=== PATIENT | female | born 1995 | race Two or more races ===

== ENCOUNTER 2019-07-28 21:30 | Observation (INO) | payer MEDICAID ==
[~2019-07-28] VITALS: Ht 162.6 cm; Wt 102.1 kg
[2019-07-28] MEDS ORDERED: PREN-153 OR (22:08)
== END 2019-07-28 22:27 | disposition home or self-care (01) | DRG 566 ==
LOC: LDRP 21:30
PROVIDERS: ADMIT Specialist; ATTEND Specialist
DX: O62.9 Abnormality of forces of labor, unspecified (principal); O26.893 Other specified pregnancy related conditions, third trimester; M79.601 Pain in right arm; N89.8 Other specified noninflammatory disorders of vagina; M79.602 Pain in left arm; Z3A.38 38 weeks gestation of pregnancy
CPT/HCPCS: 59025; 81002; G0378

== ENCOUNTER 2019-08-09 09:10 | Observation (INO) | payer MEDICAID ==
[~2019-08-09 09:10] MED LIST: PREN-153 OR
== END 2019-08-09 11:15 | disposition home or self-care (01) | DRG 566 ==
LOC: LDRP 09:10
PROVIDERS: ADMIT Specialist; ATTEND Specialist
DX: O48.0 Post-term pregnancy (principal); O26.893 Other specified pregnancy related conditions, third trimester; N89.8 Other specified noninflammatory disorders of vagina; Z3A.40 40 weeks gestation of pregnancy
CPT/HCPCS: 59025; 76818; 81002; G0378

== ENCOUNTER 2019-08-09 21:36 | Inpatient (IN) | payer MEDICAID | END 2019-08-11 14:15 | disposition home or self-care (01) | LOC: LDRP 21:36 | PROC: 10E0XZZ Delivery of Products of Conception, External Approach (ICD-10-PCS; principal; ~2019-08-09) | PROC: 0KQM0ZZ Repair Perineum Muscle, Open Approach (ICD-10-PCS; ~2019-08-09) | DX: O70.1 Second degree perineal laceration during delivery (principal); Z37.0 Single live birth; Z3A.40 40 weeks gestation of pregnancy ==

== ENCOUNTER 2020-02-01 16:41 | Emergency (ER) | payer MEDICAID ==
[~2020-02-01] VITALS: Ht 167.6 cm; Wt 99.8 kg
[2020-02-01] MEDS ORDERED: SODIUM CHLORIDE 0.9% 1,000 ML IV ONE (17:12)
[2020-02-01] MEDS ORDERED: ONDANSETRON HCL 4 MG/2 ML VIAL IV ONE (17:15)
[2020-02-01] MEDS ORDERED: PANTOPRAZOLE 40 MG/10 ML VIAL INJ IV ONE (17:15)
[2020-02-01 18:56] LABS: Basophils # (auto) 0 10 ^3/uL (0-0.2); Monocytes # (auto) 0.4 10 ^3/uL (0-1.3); Platelet Count (auto) 233 10^3/uL (140-450)
[2020-02-01 18:57] LABS: Basophils % (auto) 0.2 % (0.0-2.0); Eosinophils # (auto) 0.1 10 ^3/uL (0-0.8); Eosinophils % (auto) 0.7 % (0.0-7.0); Hematocrit 41.8 % (36.0-46.0); Lymphocytes # (auto) 0.4 10 ^3/uL (0.4-5.4); Lymphocytes % (auto) 4.3 % (10.0-50.0); Mean Corpuscular Hemoglobin 26.3 pg (28.0-32.0); Mean Corpuscular Hgb Conc. 33.6 g/dL (32.0-36.0); Mean Corpuscular Volume 78.3 fL (80.0-100.0); Monocytes % (auto) 4.2 % (0.0-12.0); Neutrophils # (auto) 9.1 10 ^3/uL (1.6-8.6); Neutrophils % (auto) 90.6 % (37.0-80.0); Red Blood Cells 5.34 10^6/uL (4.0-5.20); Red Cell Distribution Width 14.8 % (11.8-14.3); White Blood Cell 10.1 10^3/uL (4.4-10.8)
[2020-02-01 19:07] LABS: Albumin 3.6 g/dL (3.4-5.0); Calcium 9.1 mg/dL (8.5-10.1); Potassium 3.4 mmol/L (3.5-5.1)
[2020-02-01 19:11] LABS: BUN/Creatinine Ratio 19.2; Bilirubin, Total 0.3 mg/dL (0.2-1.0); Total Protein 7.8 g/dL (6.4-8.2)
[2020-02-01 19:18] VITALS: BP 101/61
[2020-02-01 22:14] LABS: Urine Bacteria FEW /hpf (None Seen); Urine Blood Negative /uL (Negative); Urine Mucus FEW (None Seen); Urine Specific Gravity 1.031 (1.001-1.035); Urine WBC 2 /hpf (0 - 5)
== END 2020-02-01 21:00 | disposition home or self-care (01) ==
LOC: ER 16:41
DX: O21.0 Mild hyperemesis gravidarum (principal); Z3A.11 11 weeks gestation of pregnancy
CPT/HCPCS: 36415; 76705; 76801; 80053; 81001; 82010; 84702; 85025; 96361; 96374; 96375; 99285; C9113; J2405; J7030; 81002

== ENCOUNTER 2021-04-05 06:13 | Emergency (ER) | payer MEDICAID ==
[~2021-04-05] VITALS: Ht 180.3 cm; Wt 104.3 kg
[~2021-04-05 06:13] MED LIST changes: -PREN-153 OR; +PREN1TAB71 OR
[2021-04-05] MEDS ORDERED: ACETAMINOPHEN 500 MG TAB PO ONE (07:45)
[2021-04-05] MEDS ORDERED: cefTRIAXone SOD 1,000 MG VL IM ONE (08:00)
[2021-04-05 08:27] LABS: Urine Bacteria FEW /hpf (None Seen); Urine Blood Negative /uL (Negative); Urine Mucus FEW (None Seen); Urine Specific Gravity 1.029 (1.001-1.035); Urine WBC 3 /hpf (0 - 5)
[2021-04-05 09:10] VITALS: BP 115/76
== END 2021-04-05 09:13 | disposition home or self-care (01) ==
LOC: ER 06:13
DX: M54.5 Low back pain (principal); N30.00 Acute cystitis without hematuria; Z79.899 Other long term (current) drug therapy
CPT/HCPCS: 81001; 81025; 96372; 99283; J0696

== ENCOUNTER 2021-08-06 09:55 | Observation (INO) | payer MEDICAID ==
[~2021-08-06] VITALS: Ht 162.6 cm; Wt 111.1 kg
[2021-08-08] MEDS ORDERED: GLYB2.5T8 PO (10:14)
== END 2021-08-08 10:40 | disposition home or self-care (01) ==
LOC: LDRP 09:55 → UNDOADMOB 09:55 → LDRP 08-08 08:59
PROVIDERS: ADMIT Obstetrics & Gynecology; ATTEND Obstetrics & Gynecology
DX: O24.419 Gestational diabetes mellitus in pregnancy, unspecified control (principal); Z3A.30 30 weeks gestation of pregnancy
CPT/HCPCS: 59025; 76818; 81002; 82948; 82962; G0378; G0379

== ENCOUNTER 2021-08-11 08:46 | Observation (INO) | payer MEDICAID ==
[~2021-08-11 08:46] MED LIST changes: +GLYB2.5T8 PO
== END 2021-08-11 10:50 | disposition home or self-care (01) ==
LOC: LDRP 09:04
PROVIDERS: ADMIT Obstetrics & Gynecology; ATTEND Obstetrics & Gynecology
DX: O24.415 Gestational diabetes mellitus in pregnancy, controlled by oral hypoglycemic drugs (principal); Z3A.30 30 weeks gestation of pregnancy
CPT/HCPCS: 59025; 76818; 81002; 82948; 82962; 94760; G0378

== ENCOUNTER 2021-08-14 09:06 | Observation (INO) | payer MEDICAID | END 2021-08-14 10:30 | disposition home or self-care (01) | LOC: LDRP 09:06 | PROVIDERS: ADMIT Obstetrics & Gynecology; ATTEND Obstetrics & Gynecology | DX: O24.415 Gestational diabetes mellitus in pregnancy, controlled by oral hypoglycemic drugs (principal); Z3A.31 31 weeks gestation of pregnancy; Z79.84 Long term (current) use of oral hypoglycemic drugs | CPT/HCPCS: 59025; 76818; 81002; 82948; 82962; G0378; G0379 ==

== ENCOUNTER 2021-09-09 13:18 | Emergency (ER) | payer MEDICAID ==
[~2021-09-09] VITALS: Ht 172.7 cm; Wt 111.1 kg
[2021-09-09 13:22] VITALS: BP 118/79
[2021-09-09] MEDS ORDERED: ACET325T82 PO (14:57)
[2021-09-09] MEDS ORDERED: AZIT1POW12 PO (15:51)
== END 2021-09-09 16:32 | disposition home or self-care (01) ==
LOC: ER 13:18
DX: O98.513 Other viral diseases complicating pregnancy, third trimester (principal); U07.1 COVID-19; Z79.899 Other long term (current) drug therapy; Z3A.32 32 weeks gestation of pregnancy
CPT/HCPCS: 36415; 87426

== ENCOUNTER 2021-10-05 09:15 | Observation (INO) | payer MEDICAID ==
[~2021-10-05 09:15] MED LIST changes: +ACET325T82 PO; +AZIT1POW12 PO
== END 2021-10-05 11:02 | disposition home or self-care (01) ==
LOC: LDRP 09:15
PROVIDERS: ADMIT Obstetrics & Gynecology; ATTEND Obstetrics & Gynecology
DX: O24.415 Gestational diabetes mellitus in pregnancy, controlled by oral hypoglycemic drugs (principal); Z3A.38 38 weeks gestation of pregnancy; Z79.84 Long term (current) use of oral hypoglycemic drugs; Z79.899 Other long term (current) drug therapy
CPT/HCPCS: 59025; 76818; 81002; 82948; 82962; G0378; G0379

== ENCOUNTER 2021-10-07 08:02 | Inpatient (IN) | payer MEDICAID ==
[~2021-10-07] VITALS: Ht 162.6 cm; Wt 111.1 kg
[2021-10-07] MEDS ORDERED: DERMOPLAST 60ML BOTTLE TOP PRN (20:30)
[2021-10-07] MEDS ORDERED: PENICILLIN G POT 5MIL/D5 50ML 50 ML IV ONE (20:30)
[2021-10-07] MEDS ORDERED: WITCH HAZEL-GLYCERIN PAD TOP PRN (20:30)
[2021-10-07] MEDS ORDERED: BUTORPHANOL TARTRATE 2 MG/1 ML VIAL IV PRN ×2 (20:30)
[2021-10-07] MEDS ORDERED: LIDOCAINE 2%HCL (LOCAL ANESTH.) INJ 20ML MDV IJ PRN (20:30)
[2021-10-07] MEDS ORDERED: PROMETHAZINE HCL 25 MG/ML 1ML IV PRN (20:30)
[2021-10-07] MEDS ORDERED: PHISODERM TOP SOLN 240ML BTL TOP PRN (20:30)
[2021-10-07 22:02] LABS: Basophils # (auto) 0 10 ^3/uL (0-0.2); Basophils % (auto) 0.2 % (0.0-2.0); Eosinophils # (auto) 0 10 ^3/uL (0-0.8); Eosinophils % (auto) 0.3 % (0.0-7.0); Hematocrit 36.2 % (36.0-46.0); Hemoglobin 11.8 g/dL (12.2-16.2); Lymphocytes # (auto) 1.8 10 ^3/uL (0.4-5.4); Lymphocytes % (auto) 21.5 % (10.0-50.0); Mean Corpuscular Hemoglobin 25.9 pg (28.0-32.0); Mean Corpuscular Hgb Conc. 32.7 g/dL (32.0-36.0); Mean Corpuscular Volume 79.1 fL (80.0-100.0); Monocytes # (auto) 0.7 10 ^3/uL (0-1.3); Monocytes % (auto) 8.6 % (0.0-12.0); Neutrophils # (auto) 5.9 10 ^3/uL (1.6-8.6); Neutrophils % (auto) 69.4 % (37.0-80.0); Nucleated Red Blood Cells % 0.1 %; Red Blood Cells 4.57 10^6/uL (4.0-5.20); Red Cell Distribution Width 15.5 % (11.8-14.3); White Blood Cell 8.6 10^3/uL (4.4-10.8)
[2021-10-07] MEDS: miSOPROStol 50 MCG per PRE-CUT 1/2 TAB PO PRN (22:11)
[2021-10-07] MEDS: LACTATED RINGER'S 1,000 ML IV SCH (22:11)
[2021-10-07 22:18] LABS: Albumin 2.5 g/dL (3.4-5.0); Calcium 8.8 mg/dL (8.5-10.1); Potassium 3.8 mmol/L (3.5-5.1)
[2021-10-07 22:20] LABS: INR 0.92 (0.9-1.15); Partial Thromboplastin Time 25.2 sec (23.6-33.0)
[2021-10-07 22:21] LABS: BUN/Creatinine Ratio 22.6
[2021-10-07 22:22] LABS: Urine Bacteria FEW /hpf (None Seen); Urine Blood TRACE /uL (Negative); Urine Mucus FEW (None Seen); Urine WBC 12 /hpf (0 - 5)
[2021-10-07 22:23] LABS: Bilirubin, Total 0.4 mg/dL (0.2-1.0); Total Protein 6.8 g/dL (6.4-8.2)
[2021-10-07 22:35] LABS: Amphetamine Screen, Urine NEGATIVE (NEGATIVE); Barbiturate Scree,Urine NEGATIVE (NEGATIVE); Benzodiazephine Screen, Urine NEGATIVE (NEGATIVE); Cannabinoid Screen, Urine NEGATIVE (NEGATIVE); Cocaine Screen, Urine NEGATIVE (NEGATIVE); Opiate Scree,Urine NEGATIVE (NEGATIVE); Phencyclidine Screen, Urine NEGATIVE (NEGATIVE)
[2021-10-08] MEDS ORDERED: PENICILLIN G POTASSIUM 2,500,000 UNITS in D5W 5% 50 ML IV SCH (00:30)
[2021-10-08] MEDS: miSOPROStol 50 MCG per PRE-CUT 1/2 TAB PO PRN (02:22)
[2021-10-08] MEDS: PENICILLIN G POTASSIUM 2,500,000 UNITS in D5W 5% 50 ML IV SCH ×3 (02:45→10:31)
[2021-10-08] MEDS: LACTATED RINGER'S 1,000 ML IV SCH (04:32)
[2021-10-08] MEDS ORDERED: LACT. RINGERS/OXYTOCIN 20UNITS 500 ML IV ONE ×2 (07:00)
[2021-10-08] MEDS: LACT. RINGERS/OXYTOCIN 20UNITS 1,000 ML IV SCH ×2 (08:59→09:36)
[2021-10-08] MEDS ORDERED: D5W/LACTATED RINGERS 1,000 ML IV SCH (10:00)
[2021-10-08] MEDS ORDERED: METHYLERGONOVINE MALEATE 0.2 MG/ML AMP IM ONE (12:39)
[2021-10-08] MEDS ORDERED: LIDOCAINE 2%HCL (LOCAL ANESTH.) INJ 20ML MDV ONE (12:40)
[2021-10-08] MEDS ORDERED: miSOPROStol 100 mcg TAB SL PRN (12:45)
[2021-10-08] MEDS ORDERED: miSOPROStol 100 mcg TAB PR PRN (12:45)
[2021-10-08] MEDS ORDERED: METHYLERGONOVINE MALEATE 0.2 MG/ML AMP IM PRN (12:45)
[2021-10-08] MEDS ORDERED: IBUPROFEN 600 MG TAB PO PRN (13:45)
[2021-10-08] MEDS ORDERED: ACETAMINOPHEN 325 MG TAB PO PRN (13:45)
[2021-10-08] MEDS ORDERED: ONDANSETRON ODT 4 MG TAB PO PRN (13:45)
[2021-10-08] MEDS: IBUPROFEN 800 MG TAB PO SCH (14:37)
[2021-10-08 15:00] VITALS: BP 123/59
[2021-10-08 19:05] VITALS: BP 113/65
[2021-10-08] MEDS ORDERED: miSOPROStol 100 mcg TAB PO ONE (20:15)
[2021-10-08] MEDS ORDERED: DOCUSATE SOD 100 MG CAP PO SCH (22:00)
[2021-10-08 22:45] VITALS: BP 115/75
[2021-10-09 03:25] VITALS: BP 113/62
[2021-10-09] MEDS: IBUPROFEN 800 MG TAB PO SCH ×3 (05:40→12:30)
[2021-10-09 08:06] LABS: RPR Non Reactive (Non Reactive)
[2021-10-09 11:00] VITALS: BP 110/75
[2021-10-09 16:24] VITALS: BP_SYST 124
== END 2021-10-09 16:57 | disposition home or self-care (01) | DRG 560 ==
LOC: UNDOADMOB 08:02 → LDRP 08:02 → OBSVTOIN 20:00 → LDRP 10-08 18:00
PROVIDERS: ADMIT Obstetrics & Gynecology; ATTEND Obstetrics & Gynecology
PROC: 10E0XZZ Delivery of Products of Conception, External Approach (ICD-10-PCS; principal; 2021-10-08)
PROC: 0KQM0ZZ Repair Perineum Muscle, Open Approach (ICD-10-PCS; 2021-10-08)
PROC: 0UQMXZZ Repair Vulva, External Approach (ICD-10-PCS; 2021-10-08)
PROC: 3E0R3BZ Introduction of Anesthetic Agent into Spinal Canal, Percutaneous Approach (ICD-10-PCS; 2021-10-08)
PROC: 00HU33Z Insertion of Infusion Device into Spinal Canal, Percutaneous Approach (ICD-10-PCS; 2021-10-08)
PROC: 3E033VJ Introduction of Other Hormone into Peripheral Vein, Percutaneous Approach (ICD-10-PCS; 2021-10-08)
DX: O24.429 Gestational diabetes mellitus in childbirth, unspecified control (principal); Z37.0 Single live birth; O69.81X0 Labor and delivery complicated by cord around neck, without compression, not applicable or unspecified; Z20.822 Contact with and (suspected) exposure to COVID-19; O70.1 Second degree perineal laceration during delivery; O71.82 Other specified trauma to perineum and vulva; Z3A.39 39 weeks gestation of pregnancy
CPT/HCPCS: 36415; 59025; 59409; 76818; 80053; 80307; 81001; 81002; 82948; 82962; 85025; 85610; 85730; 86592; 86850; 86900; 86901; 87426; 94760; 94762; 96360; 96361; 96365; 96366; G0378; J2540; J2590; J7060

== ENCOUNTER → 2022-12-21 | Outpatient (CLI) | payer MEDICAID | END | disposition home or self-care (01) | LOC: LAB 14:09 | PROVIDERS: ATTEND Obstetrics & Gynecology | DX: Z34.80 Encounter for supervision of other normal pregnancy, unspecified trimester (principal); Z3A.00 Weeks of gestation of pregnancy not specified | CPT/HCPCS: 36415; 81025; 84702 ==

== ENCOUNTER → 2023-02-15 | Outpatient (CLI) | payer MEDICAID ==
[2023-02-15 07:48] LABS: Basophils # (auto) 0 10 ^3/uL (0-0.2); Eosinophils # (auto) 0.1 10 ^3/uL (0-0.8); Lymphocytes # (auto) 1.8 10 ^3/uL (0.4-5.4); Mean Corpuscular Volume 74.6 fL (80.0-100.0); Monocytes # (auto) 0.5 10 ^3/uL (0-1.3); Red Cell Distribution Width 15.4 % (11.8-14.3)
[2023-02-15 07:51] LABS: Basophils % (auto) 0.4 % (0.0-2.0); Hematocrit 37.5 % (36.0-46.0); Hemoglobin 12.3 g/dL (12.2-16.2); Lymphocytes % (auto) 24.8 % (10.0-50.0); Mean Corpuscular Hemoglobin 24.6 pg (28.0-32.0); Mean Corpuscular Hgb Conc. 32.9 g/dL (32.0-36.0); Monocytes % (auto) 6.9 % (0.0-12.0); Neutrophils # (auto) 4.8 10 ^3/uL (1.6-8.6); Neutrophils % (auto) 66.9 % (37.0-80.0); Nucleated Red Blood Cells % 0.1 %; Red Blood Cells 5.02 10^6/uL (4.0-5.20); White Blood Cell 7.2 10^3/uL (4.4-10.8)
[2023-02-15 09:15] LABS: Alcohol, Urine < 3.0 mg/dL (0-10); Amphetamine Screen, Urine NEGATIVE (NEGATIVE); Barbiturate Scree,Urine NEGATIVE (NEGATIVE); Benzodiazephine Screen, Urine NEGATIVE (NEGATIVE); Cannabinoid Screen, Urine NEGATIVE (NEGATIVE); Cocaine Screen, Urine NEGATIVE (NEGATIVE); Opiate Scree,Urine NEGATIVE (NEGATIVE); Phencyclidine Screen, Urine NEGATIVE (NEGATIVE)
[2023-02-16 09:07] LABS: RPR Non Reactive (Non Reactive)
== END | disposition home or self-care (01) ==
LOC: LAB 07:27
PROVIDERS: ATTEND Obstetrics & Gynecology
DX: Z34.80 Encounter for supervision of other normal pregnancy, unspecified trimester (principal); Z31.430 Encounter of female for testing for genetic disease carrier status for procreative management; Z36.0 Encounter for antenatal screening for chromosomal anomalies; Z3A.00 Weeks of gestation of pregnancy not specified
CPT/HCPCS: 36415; 80307; 83021; 83036; 84702; 85025; 85660; 86592; 86703; 86762; 86850; 86900; 86901; 87086; 87340

== ENCOUNTER 2023-04-21 17:37 | Emergency (ER) | payer MEDICAID ==
[~2023-04-21] VITALS: Ht 162.6 cm; Wt 116.2 kg
[2023-04-21 17:43] VITALS: BP 108/50
== END 2023-04-21 20:25 | disposition home or self-care (01) ==
LOC: ER 17:37
DX: L60.0 Ingrowing nail (principal); Z88.1 Allergy status to other antibiotic agents
CPT/HCPCS: 11730

== ENCOUNTER → 2023-07-26 | Outpatient (CLI) | payer MEDICAID ==
[2023-07-26 09:43] LABS: Basophils # (auto) 0 10 ^3/uL (0-0.2); Eosinophils # (auto) 0.1 10 ^3/uL (0-0.8); Monocytes # (auto) 0.6 10 ^3/uL (0-1.3); Monocytes % (auto) 7.4 % (0.0-12.0); Nucleated Red Blood Cells % 0.1 %
[2023-07-26 09:45] LABS: Basophils % (auto) 0.3 % (0.0-2.0); Eosinophils % (auto) 0.9 % (0.0-7.0); Hematocrit 35.2 % (36.0-46.0); Hemoglobin 11.8 g/dL (12.2-16.2); Lymphocytes # (auto) 1.6 10 ^3/uL (0.4-5.4); Lymphocytes % (auto) 19.5 % (10.0-50.0); Mean Corpuscular Hemoglobin 25.2 pg (28.0-32.0); Mean Corpuscular Hgb Conc. 33.5 g/dL (32.0-36.0); Mean Corpuscular Volume 75.2 fL (80.0-100.0); Neutrophils % (auto) 71.9 % (37.0-80.0); Red Blood Cells 4.67 10^6/uL (4.0-5.20); Red Cell Distribution Width 15.2 % (11.8-14.3); White Blood Cell 8.3 10^3/uL (4.4-10.8)
[2023-07-27 07:06] LABS: RPR Non Reactive (Non Reactive)
[2023-07-27 10:06] LABS: Treponema Pallidum Ab LC Non Reactive (Non Reactive)
[2023-07-28 20:06] LABS: Treponema pallidum Ab (FTA-Ab) Non Reactive (Non Reactive)
== END | disposition home or self-care (01) ==
LOC: LAB 09:30
PROVIDERS: ATTEND Obstetrics & Gynecology
DX: Z34.80 Encounter for supervision of other normal pregnancy, unspecified trimester (principal)
CPT/HCPCS: 36415; 84112; 85025; 86592

== ENCOUNTER 2023-08-20 15:35 | Inpatient (IN) | payer MEDICAID ==
[~2023-08-20] VITALS: Ht 152.4 cm; Wt 117.9 kg
[2023-08-20] MEDS ORDERED: LIDOCAINE 2%HCL (LOCAL ANESTH.) INJ 20ML MDV IJ PRN (17:00)
[2023-08-20] MEDS ORDERED: miSOPROStol 100 mcg TAB PR PRN (17:00)
[2023-08-20] MEDS ORDERED: METHYLERGONOVINE MALEATE 0.2 MG/ML AMP IM PRN ×2 (17:00→21:00)
[2023-08-20] MEDS ORDERED: PHISODERM TOP SOLN 240ML BTL TOP PRN (17:00)
[2023-08-20] MEDS ORDERED: PROMETHAZINE HCL 25 MG/ML 1ML IV PRN (17:00)
[2023-08-20] MEDS ORDERED: LACT. RINGERS/OXYTOCIN 20UNITS 500 ML IV ONE ×2 (17:00→17:30)
[2023-08-20] MEDS ORDERED: CARBOPROST TROMETHAMINE 250 MCG/1ML VIAL IM PRN ×2 (17:00→21:00)
[2023-08-20] MEDS ORDERED: miSOPROStol 100 mcg TAB SL PRN ×2 (17:00→21:00)
[2023-08-20] MEDS ORDERED: DERMOPLAST 60ML BOTTLE TOP PRN (17:00)
[2023-08-20] MEDS ORDERED: ONDANSETRON HCL 4 MG/2 ML VIAL IV PRN ×2 (17:00→21:00)
[2023-08-20] MEDS ORDERED: LACTATED RINGER'S 1,000 ML IV SCH (17:00)
[2023-08-20] MEDS ORDERED: WITCH HAZEL-GLYCERIN PAD TOP PRN (17:00)
[2023-08-20 17:42] LABS: Basophils # (auto) 0 10 ^3/uL (0-0.2); Basophils % (auto) 0.3 % (0.0-2.0); Eosinophils # (auto) 0 10 ^3/uL (0-0.8); Eosinophils % (auto) 0.3 % (0.0-7.0); Lymphocytes # (auto) 1.7 10 ^3/uL (0.4-5.4); Nucleated Red Blood Cells % 0.1 %; Red Blood Cells 4.66 10^6/uL (4.0-5.20)
[2023-08-20 17:43] LABS: Hematocrit 34.9 % (36.0-46.0); Hemoglobin 11.7 g/dL (12.2-16.2); Lymphocytes % (auto) 22.9 % (10.0-50.0); Mean Corpuscular Hgb Conc. 33.4 g/dL (32.0-36.0); Mean Corpuscular Volume 74.8 fL (80.0-100.0); Monocytes # (auto) 0.5 10 ^3/uL (0-1.3); Monocytes % (auto) 7.1 % (0.0-12.0); Neutrophils # (auto) 5.2 10 ^3/uL (1.6-8.6); Neutrophils % (auto) 69.4 % (37.0-80.0); Red Cell Distribution Width 15.3 % (11.8-14.3); White Blood Cell 7.4 10^3/uL (4.4-10.8)
[2023-08-20] MEDS: miSOPROStol 50 MCG per PRE-CUT 1/2 TAB PO PRN ×2 (17:46→23:12)
[2023-08-20 17:54] LABS: INR 0.96 (0.9-1.15); Partial Thromboplastin Time 28.6 SEC (24.5-34.5); Prothrombin Time 10.1 sec (9.3-11.8)
[2023-08-20 17:56] LABS: Alanine Aminotransferase 19 U/L (7-40); Albumin 3.9 g/dL (3.2-4.8); Alkaline Phosphatase 224 U/L (46-116); Anion Gap 9 (5-15); Aspartate Aminotransferase 18 U/L (13-40); Blood Urea Nitrogen 9 mg/dL (9-23); Carbon Dioxide 21 mmol/L (20-30); Chloride 108 mmol/L (98-107); Glucose 86 mg/dL (74-106); Potassium 3.8 mmol/L (3.5-5.1); Sodium 138 mmol/L (136-145)
[2023-08-20 17:57] LABS: Bilirubin, Total 0.3 mg/dL (0.2-1.0); Total Protein 6.7 g/dL (5.7-8.2)
[2023-08-20 18:12] LABS: Urine Bacteria FEW /hpf (None Seen); Urine Blood Negative /uL (Negative); Urine Clarity HAZY (Clear); Urine Color Yellow (Yellow); Urine Mucus FEW (None Seen); Urine Protein, UAD 1+ (Negative); Urine Specific Gravity 1.033 (1.001-1.035); Urine WBC 12 /hpf (0 - 5)
[2023-08-20 18:13] LABS: Amphetamine Screen, Urine Neg (NEGATIVE); Barbiturate Scree,Urine Neg (NEGATIVE); Benzodiazephine Screen, Urine Neg (NEGATIVE); Cannabinoid Screen, Urine Neg (NEGATIVE); Cocaine Screen, Urine Neg (NEGATIVE); Opiate Scree,Urine Neg (NEGATIVE); Phencyclidine Screen, Urine Neg (NEGATIVE)
[2023-08-20] MEDS ORDERED: MINERAL OIL TOPICAL 10ml TOP PRN (21:00)
[2023-08-20] MEDS ORDERED: ACETAMINOPHEN 500 MG TAB PO PRN (21:00)
[2023-08-20] MEDS ORDERED: fentaNYL CITRATE 100 MCG/2 ML VL IV PRN (21:00)
[2023-08-20] MEDS ORDERED: diphenhdrAMINE HCL 50 MG/1 ML VL IV PRN (21:00)
[2023-08-20] MEDS ORDERED: TRANEXAMIC ACID 1,000 MG in SODIUM CHL 0.9% 100 ML IV PRN (21:00)
[2023-08-20] MEDS ORDERED: PROMETHAZINE HCL 25 MG/ML 1ML IM PRN (21:00)
[2023-08-20] MEDS ORDERED: DIPHENOXYLATE W/ATROPINE 2.5 MG TAB PO SCH (22:00)
[2023-08-20] MEDS ORDERED: TERBUTALINE SULFATE 1 MG/ML 1ML VIAL SC PRN (23:30)
[2023-08-21] MEDS ORDERED: DIPHENOXYLATE W/ATROPINE 2.5 MG TAB PO SCH
[2023-08-21] MEDS ORDERED: MINERAL OIL TOPICAL 10ml TOP ONE (01:40)
[2023-08-21] MEDS ORDERED: ACET-1882 PO (03:24)
[2023-08-21] MEDS ORDERED: CEPH250C PO (03:24)
[2023-08-21] MEDS ORDERED: IBU600T PO (03:24)
[2023-08-21] MEDS ORDERED: FERR30CA PO (03:24)
[2023-08-21] MEDS ORDERED: DOCU-265 PO (03:24)
[2023-08-21] MEDS ORDERED: LACT. RINGERS/OXYTOCIN 20UNITS 1,000 ML IV SCH (03:30)
[2023-08-21] MEDS ORDERED: ACETAMINOPHEN 325 MG TAB PO PRN (03:30)
[2023-08-21 07:07] VITALS: BP 118/58; PULSE 76; RESP 17; TEMP 98.7
[2023-08-21] MEDS: IBUPROFEN 600 MG TAB PO PRN ×2 (07:21→21:33)
[2023-08-21 11:09] VITALS: BP 101/53; PULSE 75; RESP 17; TEMP 98.1
[2023-08-21 14:58] VITALS: BP 110/55; PULSE 81; RESP 15; TEMP 98.2
[2023-08-21 19:19] VITALS: BP 114/58; PULSE 74; RESP 17; TEMP 98; O2SAT 97
[2023-08-21] MEDS ORDERED: DOCUSATE SOD 100 MG CAP PO SCH (22:00)
[2023-08-21 23:20] VITALS: BP 109/54; PULSE 76; RESP 17; TEMP 98.3; O2SAT 97
[2023-08-22 02:37] VITALS: BP 121/59; PULSE 84; RESP 18; TEMP 97.7; O2SAT 98
[2023-08-22 05:16] LABS: Basophils # (auto) 0 10 ^3/uL (0-0.2); Hemoglobin 9.3 g/dL (12.2-16.2); Lymphocytes % (auto) 30.4 % (10.0-50.0); Monocytes # (auto) 0.5 10 ^3/uL (0-1.3)
[2023-08-22 05:19] LABS: Basophils % (auto) 0.2 % (0.0-2.0); Eosinophils # (auto) 0 10 ^3/uL (0-0.8); Eosinophils % (auto) 0.6 % (0.0-7.0); Hematocrit 28.2 % (36.0-46.0); Lymphocytes # (auto) 2.4 10 ^3/uL (0.4-5.4); Mean Corpuscular Hemoglobin 25.1 pg (28.0-32.0); Mean Corpuscular Volume 75.9 fL (80.0-100.0); Monocytes % (auto) 6.4 % (0.0-12.0); Neutrophils # (auto) 4.9 10 ^3/uL (1.6-8.6); Neutrophils % (auto) 62.4 % (37.0-80.0); Nucleated Red Blood Cells % 0.1 %; Red Blood Cells 3.72 10^6/uL (4.0-5.20); Red Cell Distribution Width 15.1 % (11.8-14.3); White Blood Cell 7.8 10^3/uL (4.4-10.8)
[2023-08-22 07:10] VITALS: BP 126/79; PULSE 76; RESP 18; TEMP 98; O2SAT 96
[2023-08-22] MEDS: IBUPROFEN 600 MG TAB PO PRN (07:32)
[2023-08-22 11:20] VITALS: BP 118/59; PULSE 81; RESP 18; TEMP 97.7; O2SAT 97
[2023-08-22 11:39] VITALS: BP 118/59; PULSE 81; RESP 18; TEMP 97.7; O2SAT 97
[2023-08-24 05:07] LABS: RPR Non Reactive (Non Reactive)
[2023-08-24 22:06] LABS: Treponema pallidum Ab (FTA-Ab) Non Reactive (Non Reactive)
== END 2023-08-22 11:39 | disposition home or self-care (01) | DRG 560 ==
LOC: LDRP 15:35 → OBSVTOIN 16:50
PROVIDERS: ADMIT Obstetrics & Gynecology; ATTEND Obstetrics & Gynecology
PROC: 10E0XZZ Delivery of Products of Conception, External Approach (ICD-10-PCS; principal; 2023-08-21)
PROC: 0HQ9XZZ Repair Perineum Skin, External Approach (ICD-10-PCS; 2023-08-21)
DX: O48.0 Post-term pregnancy (principal); Z37.0 Single live birth; R71.0 Precipitous drop in hematocrit; O69.81X0 Labor and delivery complicated by cord around neck, without compression, not applicable or unspecified; Z3A.40 40 weeks gestation of pregnancy; O70.0 First degree perineal laceration during delivery
CPT/HCPCS: 36415; 59025; 59409; 76818; 80053; 80307; 81001; 81002; 85025; 85610; 85730; 86592; 86850; 86900; 86901; 94760; 96360; 96361; 96366; G0378; J2405; J2590

== ENCOUNTER 2024-06-14 16:40 | Emergency (ER) | payer MEDICAID ==
[~2024-06-14] VITALS: Ht 180.3 cm; Wt 113.1 kg
[~2024-06-14 16:40] MED LIST changes: +ACET-1882 PO; -ACET325T82 PO; -AZIT1POW12 PO; +CEPH250C PO; +DOCU-265 PO; +FERR30CA PO; -GLYB2.5T8 PO; +IBU600T PO
[2024-06-14 17:07] VITALS: BP 116/62; PULSE 100; RESP 18; O2SAT 100
== END 2024-06-14 18:56 | disposition left against medical advice (07) ==
LOC: ER 16:40
DX: R50.9 Fever, unspecified (principal); R53.83 Other fatigue; Z53.21 Procedure and treatment not carried out due to patient leaving prior to being seen by health care provider

== ENCOUNTER → 2024-09-18 | Outpatient (CLI) | payer MEDICAID ==
[2024-09-18 09:28] LABS: Basophils # (auto) 0 10 ^3/uL (0-0.2); Hemoglobin 12.7 g/dL (12.2-16.2); Neutrophils # (auto) 3.5 10 ^3/uL (1.6-8.6); White Blood Cell 6.1 10^3/uL (4.4-10.8)
[2024-09-18 09:30] LABS: Basophils % (auto) 0.5 % (0.0-2.0); Eosinophils # (auto) 0.1 10 ^3/uL (0-0.8); Eosinophils % (auto) 2.4 % (0.0-7.0); Hematocrit 38.8 % (36.0-46.0); Mean Corpuscular Hemoglobin 22.8 pg (28.0-32.0); Mean Corpuscular Hgb Conc. 32.7 g/dL (32.0-36.0); Mean Corpuscular Volume 69.7 fL (80.0-100.0); Monocytes # (auto) 0.5 10 ^3/uL (0-1.3); Monocytes % (auto) 7.4 % (0.0-12.0); Neutrophils % (auto) 56.7 % (37.0-80.0); Nucleated Red Blood Cells % 0.1 %; Platelet Count (auto) 257 10^3/uL (140-450); Red Blood Cells 5.56 10^6/uL (4.0-5.20); Red Cell Distribution Width 16.9 % (11.8-14.3)
[2024-09-18 09:31] LABS: Urine Blood 3+ /uL (Negative); Urine Clarity Clear (Clear); Urine Color Light-Yellow (Yellow); Urine Protein, UAD TRACE (Negative); Urine Urobilinogen Normal (Negative); Urine pH 5.5 (5.0-9.0)
[2024-09-18 09:48] LABS: Alanine Aminotransferase 24 U/L (7-40); Albumin 4.6 g/dL (3.2-4.8); Alkaline Phosphatase 116 U/L (46-116); Anion Gap 4 (5-15); Aspartate Aminotransferase 17 U/L (13-40); BUN/Creatinine Ratio 18.5 (10.0-20.0); Blood Urea Nitrogen 12 mg/dL (9-23); Carbon Dioxide 28 mmol/L (20-31); Chloride 107 mmol/L (98-107); Cholesterol 144 mg/dL (< 200); Glucose 100 mg/dL (74-106); HDL Cholesterol 40 mg/dL (40-59); LDL Cholesterol 96 mg/dL (< 100); Potassium 4.3 mmol/L (3.5-5.1); Sodium 139 mmol/L (136-145); Triglycerides 100 mg/dL (< 150)
[2024-09-18 09:49] LABS: Bilirubin, Total 0.3 mg/dL (0.2-1.0); Total Protein 7.5 g/dL (5.7-8.2)
[2024-09-19 13:07] LABS: Chlamydia Trachomatis, NAA Negative (Negative); Neisseria gonorrhoeae, NAA Negative (Negative)
== END | disposition home or self-care (01) ==
LOC: LAB 08:56
PROVIDERS: ATTEND Internal Medicine
DX: Z13.31 Encounter for screening for depression (principal)
CPT/HCPCS: 36415; 80053; 80061; 81003; 83036; 84443; 85025

== ENCOUNTER 2025-10-01 09:54 | Outpatient (CLI) | payer MEDICAID ==
[2025-10-01 11:07] LABS: Alanine Aminotransferase 14 U/L (7-40); Alkaline Phosphatase 89 U/L (46-116); Total Protein 7.6 g/dL (5.7-8.2)
[2025-10-01 11:08] LABS: Albumin 4.6 g/dL (3.2-4.8); Bilirubin, Direct < 0.1 mg/dL (<0.3); Bilirubin, Total 0.4 mg/dL (0.2-1.0)
== END 2025-10-01 17:00 | disposition home or self-care (01) ==
LOC: LAB 09:54
PROVIDERS: ATTEND Podiatrist
DX: B35.1 Tinea unguium (principal)
CPT/HCPCS: 36415; 80076